=== PATIENT | female | born 1995 | race American Indian/Alaskan Native ===

== ENCOUNTER 2016-12-14 15:00 | Emergency (ER) | payer MEDICAID, OTHER ==
[2016-12-14] MEDS ORDERED: cefTRIAXone 1 GM Vial IM ONE (16:39)
[2016-12-14] MEDS ORDERED: Azithromycin 250 MG Tab PO ONE (16:39)
[2016-12-14] MEDS ORDERED: Lidocaine 1% 30 ML SDV INJECT ONE ×2 (17:37→17:40)
[2016-12-14 18:03] VITALS: BP 124/53
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
== END 2016-12-14 18:23 | disposition home or self-care (01) ==
LOC: DL.ED 15:00
DX: Z04.41 Encounter for examination and observation following alleged adult rape (principal); N76.0 Acute vaginitis; Z88.8 Allergy status to other drugs, medicaments and biological substances; Z88.1 Allergy status to other antibiotic agents
CPT/HCPCS: 81025; 86803; 87210; 87340; 87389; 87491; 87591; 96372; 99283; 99285; A9270; J0696; 36415

== ENCOUNTER 2017-02-19 19:45 | Emergency (ER) | payer SELFPAY ==
[2017-02-19 19:59] VITALS: BP 106/70
[2017-02-19] MEDS ORDERED: Lidocaine 2% Jelly 5 ML Tube TOP ONE (20:25)
[2017-02-19] MEDS ORDERED: Lidocaine 1% 30 ML SDV INJECT ONE (20:25)
[2017-02-19] MEDS ORDERED: Clindamycin HCl 150 MG Cap PO ONE (21:03)
[2017-02-19] MEDS ORDERED: Acetaminophen/HYDROcodone 325-10 MG Tab PO ONE (21:03)
--- NOTE | 2017-02-19 21:03 | EDM.PDOC ---
<Wilber Lopez - Last Filed: 02/19/17 21:01> ED HPI GENERAL MEDICAL PROBLEM - General Chief Complaint: Skin Complaint Stated Complaint: BOIL ON THE RIGHT BUTTOCK, [id number] Time Seen by Provider: 02/19/17 21:01 Source of Information: Reports: Patient History Limitations: Reports: No Limitations - History of Present Illness INITIAL COMMENTS - FREE TEXT/NARRATIVE: c/o recurrent abscess Right Upper Leg Pain Score (Numeric/FACES): 48 - Related Data Allergies Allergy/AdvReac Type Severity Reaction Status Date / Time No Known Allergies Allergy Verified 02/19/17 19:59 Home Meds: Home Meds Clindamycin Hcl [IJD: Clindamycin] 150 mg PO Q6H #30 cap 02/19/17 [Rx] Past Medical History - Past Health History Medical/Surgical History: Denies Medical/Surgical History Social & Family History - Family History Family Medical History: Noncontributory - Tobacco Use Smoking Status *Q: Current Every Day Smoker Years of Tobacco use: 5 Packs/Tins Daily: 0.3 Second Hand Smoke Exposure: Yes - Caffeine Use Caffeine Use: Reports: None - Alcohol Use Days Per Week of Alcohol Use: 2 Number of Drinks Per Day: 6 Total Drinks Per Week: 12 - Recreational Drug Use Recreational Drug Use: Yes Drug Use in Last 12 Months: Yes Recreational Drug Type: Reports: Methamphetamine Recreational Drug Use Frequency: Daily ED ROS GENERAL - Review of Systems Review Of Systems: ROS reveals no pertinent complaints other than HPI. ED EXAM, SKIN/RASH Exam: See Below Exam Limited By: No Limitations General Appearance: Alert, WD/WN, Mild Distress, Other (crying) Ears: Hearing Grossly Normal Throat/Mouth: Normal Voice, No Airway Compromise Head: Atraumatic Neck: Non-Tender, Full Range of Motion Respiratory/Chest: No Respiratory Distress Cardiovascular: Regular Rate, Rhythm GI/Abdominal: Soft, Non-Tender Extremities: Other (right buttocks) Neurological: Alert, Oriented, Normal Cognition, Normal Gait, No Motor/Sensory Deficits Psychiatric: Tearful Skin: Warm, Dry, Normal Color, Other (abscess) Location, Skin: Other (right buttock) Associated features: Warmth, Tenderness, Induration, Inflammation, Weeping Course - Vital Signs Last Recorded V/S: Last Vital Signs Temp 98.6 F 02/19/17 19:55 Pulse 120 H 02/19/17 19:55 Resp 18 02/19/17 19:55 BP 106/70 02/19/17 19:55 Pulse Ox 98 02/19/17 19:55 - Orders/Labs/Meds Orders: Active Orders 24 hr Category Date Time Status CULTURE WOUND + SMEAR [RM] Stat Lab 02/19/17 20:52 Received Meds: Medications Discontinued Medications Generic Name Dose Route Start Last Admin Trade Name Saba PRN Reason Stop Dose Admin Hydrocodone Bitart/Acetaminophen 1 tab 02/19/17 21:03 02/19/17 21:11 [place] 325-10 Mg PO 02/19/17 21:04 1 tab ONETIME ONE Administration Clindamycin HCl 150 mg 02/19/17 21:03 02/19/17 21:11 Cleocin PO 02/19/17 21:04 150 mg ONETIME ONE Administration Lidocaine HCl 5 ml 02/19/17 20:25 02/19/17 20:30 Xylocaine 2% Jelly TOP 02/19/17 20:26 1 applic ONETIME ONE Administration Lidocaine HCl 30 ml 02/19/17 20:25 02/19/17 20:30 Xylocaine-Mpf 1% INJECT 02/19/17 20:26 30 ml ONETIME ONE Administration Departure - Departure Disposition: Home, Self-Care 01 Clinical Impression: Abscess - Discharge Information Prescriptions: Clindamycin Hcl [IJD: Clindamycin] 150 mg PO Q6H #30 cap Instructions: Abscess Referrals: Liang Guillermo [Primary Care Provider] - Forms: ED Department Discharge Additional Instructions: Post I&D cares discussed such as keeping the area clean and dry. Dressing was placed on the area involved today and care discussed on how to change the dressing (as there will likely still be some spontaneous drainage). Warning signs that warrant return were discussed. Follow up with PCP next week. PRN OTC tylenol/ibuprofen. Vicodine prescribed. Clindamycin PO prescribed. Questions answered. <Caleb Palacio - Last Filed: 02/19/17 21:26> ED HPI GENERAL MEDICAL PROBLEM - History of Present Illness INITIAL COMMENTS - FREE TEXT/NARRATIVE: 22 yo F is here for a "boil" -- an area of redness, warmth, and swelling along right buttock. she noticed this about 1 week ago and the area is getting more painful and bigger. Her nephew had a similar lesion about a week prior to the patient getting impacted. No known MRSA history and no known h/o recurring abscesses. She has been afebrile. No chills. No spontaneous discharge from the "boil" noted. She has not tried any agents for relief. Onset: Other (about 1 week ago) Duration: Week(s): (1) Location: Reports: Other (right buttock/butt cheek) Quality: Reports: Ache Associated Symptoms: Reports: No Other Symptoms ED ROS GENERAL - Review of Systems Review Of Systems: See Below Constitutional: Reports: No Symptoms HEENT: Reports: No Symptoms Respiratory: Reports: No Symptoms GI/Abdominal: Reports: No Symptoms : Reports: No Symptoms Skin: Reports: Other (right buttock with area of redness, swelling, pain) Neurological: Reports: No Symptoms ED EXAM, SKIN/RASH Exam: See Below Exam Limited By: No Limitations Skin: Other (abscess along right buttock (surrounding erythema as well). Abscess I&D performed after verbal consent obtained from patient; risks and benefits explained. Abscess involved was cleansed; prepared with topical lidocaine and about 3 cc lidocaine for anesthesia. Scalpel was used to drain the abscess. The involved part was left open to allow for further spontaneous drainage of purulent matter as moderate amount of purulent drainage came out with I&D in the ER. Patient tolerated the procedure well. Analgesic administered. ) Lymphatic: No Adenopathy Departure - Departure Time of Disposition: 21:17 Condition: Fair
== END 2017-02-19 21:22 | disposition home or self-care (01) ==
LOC: EEVIPCON 19:45 → DL.ED 19:45
DX: L02.31 Cutaneous abscess of buttock (principal); F17.210 Nicotine dependence, cigarettes, uncomplicated
CPT/HCPCS: 10060; 87070; 87077; 87186; 99282; A9270; 99283

== ENCOUNTER 2019-04-04 15:47 | Emergency (ER) | payer SELFPAY ==
[2019-04-04] MEDS ORDERED: cefTRIAXone 250 MG, Lidocaine 1% 0.9 ML IM ONE ×2 (16:33)
[2019-04-04] MEDS ORDERED: Azithromycin 250 MG Tab PO ONE (16:34)
[2019-04-04 17:39] VITALS: BP 124/65; PULSE 78
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
== END 2019-04-04 16:00 | disposition home or self-care (01) ==
LOC: DL.ED 15:47
DX: Z20.2 Contact with and (suspected) exposure to infections with a predominantly sexual mode of transmission (principal); J02.9 Acute pharyngitis, unspecified
CPT/HCPCS: 81025; 87081; 87430; 87491; 87591; 96372; 99283; A9270-GY; J0696; J2001

== ENCOUNTER 2019-11-22 16:41 | Emergency (ER) | payer SELFPAY ==
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
[2019-11-22] MEDS ORDERED: Acetaminophen 325 MG Tab PO ONE (16:54)
[2019-11-22 17:21] LABS: ANION GAP 15.9 mEq/L (7-13); CHLORIDE,CL 106 mmol/L (98-107); SODIUM,NA 142 mmol/L (136-145)
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
[2019-11-22 17:26] VITALS: BP 127/114; PULSE 98
== END 2019-11-22 17:57 ==
LOC: DL.ED 16:41
DX: S09.90XA Unspecified injury of head, initial encounter (principal); F15.10 Other stimulant abuse, uncomplicated; F10.10 Alcohol abuse, uncomplicated; F13.10 Sedative, hypnotic or anxiolytic abuse, uncomplicated; V87.8XXA Person injured in other specified noncollision transport accidents involving motor vehicle (traffic), initial encounter
CPT/HCPCS: 36415; 70450; 72125; 80053; 80305; 80307; 81003; 81025; 82150; 83690; 85025; 99284; A9270; 99282

== ENCOUNTER 2020-01-27 02:35 | Emergency (ER) | payer SELFPAY ==
[2020-01-27] MEDS ORDERED: diphenhydrAMINE 50 MG/ML SDV IM ONE (02:41)
[2020-01-27] MEDS ORDERED: LORazepam 2 MG/ML SDV IM ONE ×2 (02:42→02:51)
[2020-01-27] MEDS ORDERED: diphenhydrAMINE 50 MG/ML SDV IVPUSH ONE (02:47)
[2020-01-27] MEDS ORDERED: LORazepam 2 MG/ML SDV IV ONE (02:51)
--- NOTE | 2020-01-27 02:57 | EDM.PDOC ---
ED HPI GENERAL MEDICAL PROBLEM - General Source of Information: Reports: Patient History Limitations: Reports: Altered Mental Status - History of Present Illness Onset: Unknown/Unsure Duration: Constant Location: Reports: Generalized Quality: Reports: Other Severity: Moderate Improves with: Reports: None Worsens with: Reports: None Context: Reports: Other Associated Symptoms: Reports: No Other Symptoms <Franco Julien - Last Filed: 01/27/20 03:05> <Jimbo Woodard - Last Filed: 01/27/20 11:10> - General Chief Complaint: Drug or Alcohol Abuse Stated Complaint: OK DRUGS Time Seen by Provider: 01/27/20 02:48 - History of Present Illness INITIAL COMMENTS - FREE TEXT/NARRATIVE: This 25 yo female patient arrives in the ED reporting her "body is shrinking", "there are bugs in my mouth" and "there are bugs crawling out of my arms". The patient admits to doing methamphetamines this evening, but denies any other drug or alcohol use. (Franco Julien) - Related Data Allergies Allergy/AdvReac Type Severity Reaction Status Date / Time No Known Allergies Allergy Verified 01/27/20 02:50 Home Meds: Home Meds . [No Known Home Meds] 11/22/19 [History] Past Medical History - Past Health History Medical/Surgical History: Denies Medical/Surgical History <Franco Julien - Last Filed: 01/27/20 03:05> Social & Family History - Family History Family Medical History: Noncontributory - Caffeine Use Caffeine Use: Reports: None <Franco Julien - Last Filed: 01/27/20 03:05> ED ROS GENERAL - Review of Systems Review Of Systems: Comprehensive ROS is negative, except as noted in HPI. <Franco Julien - Last Filed: 01/27/20 03:05> - Physical Exam Exam: See Below Exam Limited By: No Limitations General Appearance: Alert, WD/WN, Moderate Distress Eye Exam: Bilateral Eye: EOMI Ears: Normal External Exam, Normal Canal, Hearing Grossly Normal, Normal TMs Nose: Normal Inspection, Normal Mucosa, No Blood Throat/Mouth: Normal Lips, Other (Dental decay) Head Exam: Atraumatic, Normocephalic Neck: Normal Inspection, Supple, Non-Tender, Full Range of Motion Respiratory/Chest: No Respiratory Distress, Lungs Clear, Normal Breath Sounds, No Accessory Muscle Use, Chest Non-Tender Cardiovascular: Normal Peripheral Pulses, Regular Rate, Rhythm, No Edema, No Gallop, No JVD, No Murmur, No Rub GI/Abdominal: Normal Bowel Sounds, Soft, Non-Tender, No Organomegaly, No Diste ntion, No Abnormal Bruit, No Mass (Female) Exam: Deferred Rectal (Female) Exam: Deferred Neuro Exam (Abbreviated): Alert, Oriented, CN II-XII Intact, Normal Cognition, Normal Gait, Normal Reflexes, No Motor/Sensory Deficits Back Exam: Normal Inspection, Full Range of Motion, NT Extremities: Normal Inspection, Normal Range of Motion, Non-Tender, No Pedal Edema, Normal Capillary Refill Psychiatric: Normal Affect, Normal Mood Skin Exam: Warm, Dry, Intact, Normal Color, No Rash <Franco Julien - Last Filed: 01/27/20 03:05> <Jimbo Woodard - Last Filed: 01/27/20 11:10> - Physical Exam Text/Narrative:: No change to exam as documented by the PA for this encounter. (Jimbo Woodard) Course <Jimbo Woodard - Last Filed: 01/27/20 11:10> - Vital Signs Last Recorded V/S: Last Vital Signs Temp 97.1 F 01/27/20 04:44 Pulse 89 01/27/20 04:44 Resp 18 01/27/20 04:44 BP 121/54 L 01/27/20 04:44 Pulse Ox 100 01/27/20 04:44 - Orders/Labs/Meds Orders: Active Orders 24 hr Category Date Time Status CULTURE URINE [RM] Stat Lab 01/27/20 06:54 Received Labs: Laboratory Tests 01/27/20 01/27/20 01/27/20 Range/Units 02:44 02:44 02:44 WBC 11.6 H (5.0-10.0) 10^3/uL RBC 4.82 (4.2-5.4) 10^6/uL Hgb 12.7 (12.0-16.0) g/dL Hct 37.3 (37.0-47.0) % MCV 77.4 L D (80-100) fL MCH 26.3 L (27.0-34.0) pg MCHC 34.0 (33.0-35.0) g/dL Plt Count 281 (150-450) 10^3/uL Neut % (Auto) 54.7 (42.2-75.2) % Lymph % (Auto) 29.2 (20.5-50.1) % [place] % (Auto) 13.2 H (2-8) % Eos % (Auto) 2.7 (1.0-3.0) % Baso % (Auto) 0.2 (0.0-1.0) % Sodium 136 (136-145) mmol/L Potassium 2.3 L* D (3.5-5.1) mmol/L Chloride 100 (98-107) mmol/L Carbon Dioxide 23 (21-32) mmol/L Anion Gap 15.3 H (7-13) mEq/L BUN 8 (7-18) mg/dL Creatinine 1.15 H (0.55-1.02) mg/dL Est Cr Clr Drug Dosing TNP Estimated GFR (MDRD) 57 BUN/Creatinine Ratio 7.0 (No establ ref range) Glucose 134 H (74-99) mg/dL Calcium 8.7 (8.5-10.1) mg/dL Total Bilirubin 0.3 (0.2-1.0) mg/dL AST 38 H (15-37) U/L ALT 52 (14-59) U/L Alkaline Phosphatase 140 H (46-116) U/L Total Protein 8.5 H (6.4-8.2) g/dL Albumin 3.9 (3.4-5.0) g/dL Globulin 4.6 Albumin/Globulin Ratio 0.8 Urine Color Urine Appearance Urine pH Ur Specific Hayden Urine Protein Urine Glucose (UA) Urine Ketones Urine Occult Blood Urine Nitrite Urine Bilirubin Urine Urobilinogen Ur Leukocyte Esterase Urine RBC /HPF Urine WBC (0-5/HPF) /HPF Ur Epithelial Cells (NOT SEEN) /HPF Urine Bacteria (0-FEW/HPF) /HPF Fine Granular Casts (NOT SEEN) /LPF Urine Mucus (NOT SEEN) /LPF Salicylates < 2.8 L (2.8-20(Therapeutic)) mg/dL Urine Opiates Screen Ur Oxycodone Screen Urine Methadone Screen Acetaminophen 0 L (10-30 (Therapeutic)) ug/mL Ur Barbiturates Screen U Tricyclic Antidepress Ur Phencyclidine Scrn Ur Amphetamine Screen U Methamphetamines Scrn Urine MDMA Screen U Benzodiazepines Scrn Urine Cocaine Screen U Marijuana (THC) Screen Ethyl Alcohol < 3 (0) mg/dL 01/27/20 01/27/20 01/27/20 Range/Units 05:58 05:58 06:54 WBC (5.0-10.0) 10^3/uL RBC (4.2-5.4) 10^6/uL Hgb (12.0-16.0) g/dL Hct (37.0-47.0) % MCV (80-100) fL MCH (27.0-34.0) pg MCHC (33.0-35.0) g/dL Plt Count (150-450) 10^3/uL Neut % (Auto) (42.2-75.2) % Lymph % (Auto) (20.5-50.1) % [place] % (Auto) (2-8) % Eos % (Auto) (1.0-3.0) % Baso % (Auto) (0.0-1.0) % Sodium (136-145) mmol/L Potassium (3.5-5.1) mmol/L Chloride (98-107) mmol/L Carbon Dioxide (21-32) mmol/L Anion Gap (7-13) mEq/L BUN (7-18) mg/dL Creatinine (0.55-1.02) mg/dL Est Cr Clr Drug Dosing Estimated GFR (MDRD) BUN/Creatinine Ratio (No establ ref range) Glucose (74-99) mg/dL Calcium (8.5-10.1) mg/dL Total Bilirubin (0.2-1.0) mg/dL AST (15-37) U/L ALT (14-59) U/L Alkaline Phosphatase (46-116) U/L Total Protein (6.4-8.2) g/dL Albumin (3.4-5.0) g/dL Globulin Albumin/Globulin Ratio Urine Color Cancelled Urine Appearance Cancelled Urine pH Cancelled Ur Specific Hayden Cancelled Urine Protein Cancelled Urine Glucose (UA) Cancelled Urine Ketones Cancelled Urine Occult Blood Cancelled Urine Nitrite Cancelled Urine Bilirubin Cancelled Urine Urobilinogen Cancelled Ur Leukocyte Esterase Cancelled Urine RBC /HPF Urine WBC (0-5/HPF) /HPF Ur Epithelial Cells (NOT SEEN) /HPF Urine Bacteria (0-FEW/HPF) /HPF Fine Granular Casts (NOT SEEN) /LPF Urine Mucus (NOT SEEN) /LPF Salicylates (2.8-20(Therapeutic)) mg/dL Urine Opiates Screen Cancelled Negative Ur Oxycodone Screen Cancelled Negative Urine Methadone Screen Cancelled Negative Acetaminophen (10-30 (Therapeutic)) ug/mL Ur Barbiturates Screen Cancelled Negative U Tricyclic Antidepress Cancelled Negative Ur Phencyclidine Scrn Cancelled Negative Ur Amphetamine Screen Cancelled Positive H U Methamphetamines Scrn Cancelled Positive H Urine MDMA Screen Cancelled Positive H U Benzodiazepines Scrn Cancelled Positive H Urine Cocaine Screen Cancelled Negative U Marijuana (THC) Screen Cancelled Positive H Ethyl Alcohol (0) mg/dL 01/27/20 Range/Units 06:54 WBC (5.0-10.0) 10^3/uL RBC (4.2-5.4) 10^6/uL Hgb (12.0-16.0) g/dL Hct (37.0-47.0) % MCV (80-100) fL MCH (27.0-34.0) pg MCHC (33.0-35.0) g/dL Plt Count (150-450) 10^3/uL Neut % (Auto) (42.2-75.2) % Lymph % (Auto) (20.5-50.1) % [place] % (Auto) (2-8) % Eos % (Auto) (1.0-3.0) % Baso % (Auto) (0.0-1.0) % Sodium (136-145) mmol/L Potassium (3.5-5.1) mmol/L Chloride (98-107) mmol/L Carbon Dioxide (21-32) mmol/L Anion Gap (7-13) mEq/L BUN (7-18) mg/dL Creatinine (0.55-1.02) mg/dL Est Cr Clr Drug Dosing Estimated GFR (MDRD) BUN/Creatinine Ratio (No establ ref range) Glucose (74-99) mg/dL Calcium (8.5-10.1) mg/dL Total Bilirubin (0.2-1.0) mg/dL AST (15-37) U/L ALT (14-59) U/L Alkaline Phosphatase (46-116) U/L Total Protein (6.4-8.2) g/dL Albumin (3.4-5.0) g/dL Globulin Albumin/Globulin Ratio Urine Color Yellow Urine Appearance Slightly cloudy Urine pH 6.0 Ur Specific Hayden >= 1.030 Urine Protein Negative Urine Glucose (UA) Negative Urine Ketones Negative Urine Occult Blood Trace-intact H Urine Nitrite Positive H Urine Bilirubin Negative Urine Urobilinogen 1.0 Ur Leukocyte Esterase Trace H Urine RBC 0-5 /HPF Urine WBC 5-10 H (0-5/HPF) /HPF Ur Epithelial Cells Few (NOT SEEN) /HPF Urine Bacteria Many H (0-FEW/HPF) /HPF Fine Granular Casts Few H (NOT SEEN) /LPF Urine Mucus Moderate H (NOT SEEN) /LPF Salicylates (2.8-20(Therapeutic)) mg/dL Urine Opiates Screen Ur Oxycodone Screen Urine Methadone Screen Acetaminophen (10-30 (Therapeutic)) ug/mL Ur Barbiturates Screen U Tricyclic Antidepress Ur Phencyclidine Scrn Ur Amphetamine Screen U Methamphetamines Scrn Urine MDMA Screen U Benzodiazepines Scrn Urine Cocaine Screen U Marijuana (THC) Screen Ethyl Alcohol (0) mg/dL Meds: Medications Discontinued Medications Generic Name Dose Route Start Last Admin Trade Name Saba PRN Reason Stop Dose Admin Bacitracin 1 dose 01/27/20 03:05 01/27/20 03:22 Bacitracin Oint 1 Gm TOP 01/27/20 03:06 1 dose ONETIME ONE Administration Diphenhydramine HCl 50 mg 01/27/20 02:41 01/27/20 02:55 Benadryl IM 01/27/20 02:42 Not Given ONETIME ONE Diphenhydramine HCl 50 mg 01/27/20 02:47 01/27/20 02:46 Benadryl IVPUSH 01/27/20 02:48 50 mg ONETIME ONE Administration Potassium Chloride 20 meq/ 100 mls @ 50 mls/hr 01/27/20 03:16 01/27/20 03:26 Premix IV 01/27/20 05:15 50 mls/hr ONETIME ONE Administration Lorazepam 2 mg 01/27/20 02:42 01/27/20 02:55 Ativan IM 01/27/20 02:43 Not Given ONETIME ONE Lorazepam 2 mg 01/27/20 02:51 Ativan IM 01/27/20 02:52 ONETIME ONE Lorazepam 2 mg 01/27/20 02:51 01/27/20 02:52 Ativan IV 01/27/20 02:52 2 mg ONETIME ONE Administration Lorazepam 2 mg 01/27/20 03:35 01/27/20 03:42 Ativan IVPUSH 01/27/20 03:36 2 mg ONETIME ONE Administration Lorazepam 2 mg 01/27/20 04:43 01/27/20 04:49 Ativan IVPUSH 01/27/20 04:44 2 mg ONETIME ONE Administration Potassium Chloride 40 meq 01/27/20 03:16 01/27/20 03:25 Klor-Con 10 PO 01/27/20 03:17 40 meq ONETIME ONE Administration - Re-Assessments/Exams Free Text/Narrative Re-Assessment/Exam: 01/27/20 11:08 Pt was allowed to sleep in ER until 11:00HRS, then she woke and gave the phone number to call her mother for a ride home. (Jimbo Woodard) Departure <Franco Julien - Last Filed: 01/27/20 03:05> - Departure Time of Disposition: 11:09 Condition: Fair - Discharge Information *PRESCRIPTION DRUG MONITORING PROGRAM REVIEWED*: No *COPY OF PRESCRIPTION DRUG MONITORING REPORT IN PATIENT PABLO: No <Jimbo Woodard - Last Filed: 01/27/20 11:10> - Departure Disposition: Home, Self-Care 01 Clinical Impression: Methamphetamine abuse, Encounter for medical screening examination - Discharge Information Instructions: Stimulant Use Disorder-Methamphetamines, Substance Use Disorder Forms: ED Department Discharge Additional Instructions: Abstain from drug use. Go to a detox or substance treatment program. Sepsis Event Note (ED) - Evaluation Sepsis Screening Result: No Definite Risk <Franco Julien - Last Filed: 01/27/20 03:05> - Focused Exam Vital Signs: Vital Signs Temp Pulse Resp BP Pulse Ox 01/27/20 04:44 97.1 F 89 18 121/54 L 100 01/27/20 02:48 97.3 F 125 H 22 H 120/69 100
[2020-01-27] MEDS ORDERED: Bacitracin Oint 1 GM U/D Packet TOP ONE (03:05)
[2020-01-27 03:11] LABS: ANION GAP 15.3 mEq/L (7-13); CHLORIDE,CL 100 mmol/L (98-107); SODIUM,NA 136 mmol/L (136-145)
[2020-01-27 03:13] LABS: ACETAMINOPHEN 0 ug/mL (10-30 (Therapeutic))
[2020-01-27] MEDS ORDERED: Potassium Chloride 20 MEQ in Premix Bag 1 BAG IV ONE (03:16)
[2020-01-27] MEDS ORDERED: Potassium Chloride 10 MEQ Tab.ER PO ONE (03:16)
[2020-01-27] MEDS ORDERED: LORazepam 2 MG/ML SDV IVPUSH ONE ×2 (03:35→04:43)
[2020-01-27 04:45] VITALS: BP 121/54; PULSE 89
== END 2020-01-27 12:24 | disposition home or self-care (01) ==
LOC: DL.ED 02:35
DX: F15.10 Other stimulant abuse, uncomplicated (principal); K02.9 Dental caries, unspecified
CPT/HCPCS: 36415; 80053; 80305; 80307; 81001; 85025; 87086; 87088; 87186; 96365; 96366; 96375; 96376; 99284; A9270; J1200; J2060; J3480; 99283

== ENCOUNTER 2021-05-16 16:40 | Emergency (ER) | payer SELFPAY | END 2021-05-16 17:25 | disposition left against medical advice (07) | LOC: DL.ED 16:40 | DX: Z53.21 Procedure and treatment not carried out due to patient leaving prior to being seen by health care provider (principal) ==

== ENCOUNTER 2021-11-05 16:04 | Emergency (ER) | payer SELFPAY ==
[2021-11-05 16:37] VITALS: BP 101/74
[2021-11-05 18:02] LABS: ANION GAP 12.3 mEq/L (7-13); CHLORIDE,CL 102 mmol/L (98-107); SODIUM,NA 139 mmol/L (136-145)
[2021-11-05 18:03] LABS: ACETAMINOPHEN 0 ug/mL (10-30 (Therapeutic))
[2021-11-05 18:10] LABS: METHAMPHETAMINES,URINE POSITIVE (NEGATIVE)
[2021-11-05 18:11] LABS: AMPHETAMINES,URINE POSITIVE (NEGATIVE); BARBITURATES,URINE NEGATIVE (NEGATIVE); BENZODIAZEPINE,URINE NEGATIVE (NEGATIVE); MDMA (ECSTASY), URINE NEGATIVE (NEGATIVE); METHADONE,URINE NEGATIVE (NEGATIVE); OPIATES,URINE NEGATIVE (NEGATIVE); OXYCODONE,URINE NEGATIVE (NEGATIVE); PHENCYCLIDINE,URINE NEGATIVE (NEGATIVE); TCA,URINE NEGATIVE (NEGATIVE)
[2021-11-05 18:11] LABS: CORONAVIRUS COVID-19 NAA NEGATIVE (NEGATIVE)
[2021-11-05 19:05] VITALS: PULSE 76
== END 2021-11-05 18:56 ==
LOC: DL.ED 16:04
DX: J06.9 Acute upper respiratory infection, unspecified (principal); F10.10 Alcohol abuse, uncomplicated; F15.10 Other stimulant abuse, uncomplicated; Z20.822 Contact with and (suspected) exposure to COVID-19
CPT/HCPCS: 0240U; 36415; 80053; 80143; 80179; 80305-QW; 80307; 81001; 81025; 84484; 85025; 87081; 87086; 87430; 93005; 93010; 99282; 99284-25

== ENCOUNTER 2021-11-22 19:38 | Emergency (ER) | payer SELFPAY ==
[2021-11-22 19:52] VITALS: BP 119/79; PULSE 96
[2021-11-22 20:50] LABS: ANION GAP 15.9 mEq/L (7-13); CHLORIDE,CL 103 mmol/L (98-107); SODIUM,NA 139 mmol/L (136-145)
[2021-11-22] MEDS ORDERED: Potassium Chloride 10 MEQ Tab.ER PO ONE (20:51)
[2021-11-22] MEDS ORDERED: Potassium Chloride 20 MEQ in Premix Bag 1 BAG IV ONE (20:51)
[2021-11-22] MEDS ORDERED: Acetaminophen 325 MG Tab PO ONE (20:52)
[2021-11-22] MEDS ORDERED: Sodium Chloride 0.9% 1,000 ML IV ONE (20:52)
[2021-11-23] MEDS ORDERED: Cyclobenzaprine 10 MG Tab PO ONE
== END 2021-11-23 00:24 | disposition home or self-care (01) ==
LOC: DL.ED 19:38
DX: S00.83XA Contusion of other part of head, initial encounter (principal); S00.03XA Contusion of scalp, initial encounter; M54.2 Cervicalgia; J06.9 Acute upper respiratory infection, unspecified; Y04.0XXA Assault by unarmed brawl or fight, initial encounter
CPT/HCPCS: 36415; 70450; 70486; 72125; 80053; 80307; 84703; 85025; 96365; 96366; 99283; 99284; A9270; J3480; J7030

== ENCOUNTER 2022-02-15 10:20 | Emergency (ER) | payer MEDICAID ==
[2022-02-15 11:58] VITALS: PULSE 89
[2022-02-15 13:35] LABS: ANION GAP 18.5 mEq/L (7-13); CHLORIDE,CL 100 mmol/L (98-107); SODIUM,NA 138 mmol/L (136-145)
[2022-02-15 13:36] LABS: ESTIMATED GFR 112 mL/min (>=60)
[2022-02-15 14:24] LABS: AMPHETAMINES,URINE POSITIVE (NEGATIVE); BARBITURATES,URINE NEGATIVE (NEGATIVE); BENZODIAZEPINE,URINE POSITIVE (NEGATIVE); MDMA (ECSTASY), URINE NEGATIVE (NEGATIVE); METHADONE,URINE NEGATIVE (NEGATIVE); METHAMPHETAMINES,URINE POSITIVE (NEGATIVE); OPIATES,URINE NEGATIVE (NEGATIVE); OXYCODONE,URINE NEGATIVE (NEGATIVE); PHENCYCLIDINE,URINE NEGATIVE (NEGATIVE); TCA,URINE NEGATIVE (NEGATIVE)
[2022-02-15] MEDS ORDERED: Ondansetron 4 MG Tab.DIS PO ONE (15:35)
[2022-02-15] MEDS ORDERED: Acetaminophen 500 MG Tab PO ONE (15:36)
[2022-02-15] MEDS ORDERED: hydrOXYzine HCl 25 MG Tab PO ONE (15:36)
[2022-02-15 16:01] VITALS: BP 112/70
== END 2022-02-15 16:07 ==
LOC: DL.ED 10:20
DX: F19.10 Other psychoactive substance abuse, uncomplicated (principal); F17.210 Nicotine dependence, cigarettes, uncomplicated
CPT/HCPCS: 36415; 71045; 80053; 80305; 80307; 81003; 81025; 85025; 99282; 99283; A9270

== ENCOUNTER 2022-04-19 09:54 | Emergency (ER) | payer MEDICAID ==
[2022-04-19 10:08] VITALS: BP 123/58; PULSE 81
== END 2022-04-19 10:44 | disposition home or self-care (01) ==
LOC: DL.ED 09:54
DX: H57.89 Other specified disorders of eye and adnexa (principal); Z71.1 Person with feared health complaint in whom no diagnosis is made
CPT/HCPCS: 99283

== ENCOUNTER 2022-09-01 18:53 | Emergency (ER) | payer MEDICAID ==
[2022-09-01] MEDS ORDERED: Sodium Chloride 0.9% 10 ML Syringe FLUSH PRN (19:08)
[2022-09-01 19:12] VITALS: BP 112/54; PULSE 129
[2022-09-01 19:38] LABS: ANION GAP 16.6 mEq/L (7-13)
== END 2022-09-01 19:25 | disposition left against medical advice (07) ==
LOC: DL.ED 18:53
DX: M54.50 Low back pain, unspecified (principal)
CPT/HCPCS: 36415; 80053; 85025; 99282; 99283; J3490

== ENCOUNTER 2023-06-04 21:56 | Emergency (ER) | payer MEDICAID ==
[2023-06-04] MEDS ORDERED: Sodium Chloride 0.9% 10 ML Syringe FLUSH PRN (22:14)
[2023-06-04 22:22] VITALS: BP 107/80; PULSE 124
[2023-06-04 22:26] LABS: BASOPHILS PERCENT AUTO 0.1 % (0.0-1.0); EOSINOPHILS PERCENT AUTO 0.2 % (1.0-3.0); HEMATOCRIT 41.9 % (37.0-47.0); HEMOGLOBIN 13.6 g/dL (12.0-16.0); LYMPHOCYTES PERCENT AUTO 9.2 % (20.5-50.1); MEAN CORPUSCULAR HEMOGLOBIN 27.8 pg (27.0-34.0); MEAN CORPUSCULAR HGB CONC 32.5 g/dL (33.0-35.0); MEAN CORPUSCULAR VOLUME 85.5 fL (80-100); MONOCYTES PERCENT AUTO 1.4 % (2-8); NEUTROPHILS PERCENT AUTO 89.1 % (42.2-75.2); PLATELET COUNT,PLT 238 10^3/uL (150-450); WHITE BLOOD CELL COUNT,WBC 8.3 10^3/uL (5.0-10.0)
[2023-06-04 22:44] LABS: A/G RATIO 0.7; ALBUMIN 3.4 g/dL (3.4-5.0); ANION GAP 14.8 mEq/L (7-13); BILIRUBIN TOTAL 0.2 mg/dL (0.2-1.0); BUN/CREATININE RATIO 11.6 (No establ ref range); CALCIUM 8.6 mg/dL (8.5-10.1); CREATININE 0.86 mg/dL (0.55-1.02); EST CRCL DRUG DOSING (CG) 93.02 mL/min; MAGNESIUM 2.3 mg/dL (1.8-2.4); POTASSIUM,K 3.8 mmol/L (3.5-5.1)
[2023-06-04 23:02] LABS: CORONAVIRUS COVID-19 NAA NEGATIVE (NEGATIVE); INFLUENZA A NAA NEGATIVE (NEGATIVE); INFLUENZA B NAA NEGATIVE (NEGATIVE)
== END 2023-06-04 23:08 | disposition home or self-care (01) ==
LOC: DL.ED 21:56
DX: R06.02 Shortness of breath (principal); R05.9 Cough, unspecified; F17.210 Nicotine dependence, cigarettes, uncomplicated; Z53.29 Procedure and treatment not carried out because of patient's decision for other reasons
CPT/HCPCS: 0240U; 36415; 80053; 83735; 84484; 85025; 85379; 93005; 93010; 99284; 99285; J3490

== ENCOUNTER 2023-07-06 20:30 | Emergency (ER) | payer MEDICAID ==
[~2023-07-06 20:30] MED LIST: Lactated Ringers 1,000 ML IV SCH; Ondansetron 4 MG/2 ML SDV IVPUSH ONE
[2023-07-06 20:34] VITALS: BP 122/51; PULSE 110
[2023-07-06 20:34] LABS: BASOPHILS PERCENT AUTO 0.1 % (0.0-1.0); EOSINOPHILS PERCENT AUTO 1.2 % (1.0-3.0); HEMATOCRIT 43.1 % (37.0-47.0); HEMOGLOBIN 13.7 g/dL (12.0-16.0); LYMPHOCYTES PERCENT AUTO 20.4 % (20.5-50.1); MEAN CORPUSCULAR HEMOGLOBIN 27.4 pg (27.0-34.0); MEAN CORPUSCULAR HGB CONC 31.8 g/dL (33.0-35.0); MEAN CORPUSCULAR VOLUME 86.2 fL (80-100); MONOCYTES PERCENT AUTO 6.7 % (2-8); NEUTROPHILS PERCENT AUTO 71.6 % (42.2-75.2); PLATELET COUNT,PLT 205 10^3/uL (150-450); WHITE BLOOD CELL COUNT,WBC 7.5 10^3/uL (5.0-10.0)
[2023-07-06] MEDS ORDERED: Naloxone 2 MG/2 ML Syringe IVPUSH ONE ×3 (20:34→21:11)
[2023-07-06 20:59] LABS: A/G RATIO 0.8; ALBUMIN 3.4 g/dL (3.4-5.0); ANION GAP 16.3 mEq/L (7-13); BILIRUBIN TOTAL 0.2 mg/dL (0.2-1.0); BUN/CREATININE RATIO 10.9 (No establ ref range); CALCIUM 8.3 mg/dL (8.5-10.1); CREATININE 1.01 mg/dL (0.55-1.02); EST CRCL DRUG DOSING (CG) 79.2 mL/min; POTASSIUM,K 3.3 mmol/L (3.5-5.1); PROTEIN TOTAL,TP 7.5 g/dL (6.4-8.2)
[2023-07-06 21:26] LABS: APPEARANCE,URINE TURBID (CLEAR); BILIRUBIN,URINE MODERATE (NEGATIVE); COLOR,URINE RED (YELLOW); GLUCOSE,URINE NEGATIVE (NEGATIVE); KETONES,URINE 15 (NEGATIVE); LEUKOCYTE ESTERASE,URINE LARGE (NEGATIVE); NITRITE,URINE POSITIVE (NEGATIVE); OCCULT BLOOD,URINE LARGE (NEGATIVE); PROTEIN,URINE >=300 (NEGATIVE)
[2023-07-06 21:30] LABS: AMPHETAMINES,URINE POSITIVE (NEGATIVE); BARBITURATES,URINE NEGATIVE (NEGATIVE); BENZODIAZEPINE,URINE NEGATIVE (NEGATIVE); MDMA (ECSTASY), URINE NEGATIVE (NEGATIVE); METHADONE,URINE NEGATIVE (NEGATIVE); METHAMPHETAMINES,URINE POSITIVE (NEGATIVE); OPIATES,URINE NEGATIVE (NEGATIVE); OXYCODONE,URINE NEGATIVE (NEGATIVE); PHENCYCLIDINE,URINE NEGATIVE (NEGATIVE); TCA,URINE NEGATIVE (NEGATIVE)
[2023-07-06] MEDS ORDERED: cefTRIAXone 2 GM Vial IVPUSH ONE (21:32)
[2023-07-06 21:37] LABS: BACTERIA,URINE MANY /HPF (0-FEW/HPF); EPITHELIAL CELLS,URINE FEW /HPF (NOT SEEN); RBC,URINE PACKED /HPF (0-5); WBC,URINE PACKED /HPF (0-5/HPF)
[2023-07-09 12:46] LABS: C.TRACHOMATIS BY TMA Negative (Negative); M GENITALIUM Negative (Negative); M GENITALIUM SOURCE Urine; N.GONORRHOEAE BY TMA Negative (Negative); SOURCE Urine
== END 2023-07-06 22:26 | disposition home or self-care (01) ==
LOC: DL.ED 20:30
DX: F15.10 Other stimulant abuse, uncomplicated (principal); N30.01 Acute cystitis with hematuria; Z79.899 Other long term (current) drug therapy
CPT/HCPCS: 36415; 80053; 80305-QW; 80307; 81001; 85025; 87086; 87491; 87563; 87591; 96361; 96374; 96375; 99284; 99285-25; J0696; J2310; J2405; J7120

== ENCOUNTER 2023-10-20 20:44 | Emergency (ER) | payer MEDICAID, OTHER ==
[2023-10-20 21:08] VITALS: BP 138/103
[2023-10-20] MEDS: Acetaminophen 500 MG Tab PO ONE (21:28)
[2023-10-20] MEDS: Cephalexin 500 MG Cap PO ONE (21:29)
[2023-10-20] MEDS: Diphtheria,Pertussis(Acell),Tetanus Vaccine 0.5 ML Syringe IM ONE (21:44)
[2023-10-20 22:14] VITALS: PULSE 95
== END 2023-10-20 22:15 ==
LOC: DL.ED 20:44
DX: S82.844A Nondisplaced bimalleolar fracture of right lower leg, initial encounter for closed fracture (principal); I10 Essential (primary) hypertension; Z79.899 Other long term (current) drug therapy; Z23 Encounter for immunization
CPT/HCPCS: 73610-RT; 90471; 90715; 99283; 99283-25; A9270-GY

== ENCOUNTER 2024-08-14 11:40 | Emergency (ER) | payer SELFPAY ==
[2024-08-14] MEDS: Ibuprofen 800 MG Tab PO ONE (12:12)
[2024-08-14] MEDS: Take Home: Sulfamethoxazole/Trimethoprim 800-160 MG Tab, 6 Tab Pack PO ONE (12:48)
[2024-08-14 13:00] VITALS: BP 104/57; PULSE 89
== END 2024-08-14 12:55 | disposition home or self-care (01) ==
LOC: DL.ED 11:40
DX: L03.211 Cellulitis of face (principal); L70.0 Acne vulgaris; I10 Essential (primary) hypertension; Z79.899 Other long term (current) drug therapy
CPT/HCPCS: 87081; 87430; 99283; A9270; 99284